=== PATIENT | female | born 1985 | race Caucasian/White ===

== ENCOUNTER 2017-05-26 10:19 | Emergency (ER) | payer OTHER ==
[2017-05-26] MEDS ORDERED: NALBUPHINE HCL 20 MG/ML AMPUL IM ONE (11:02)
[2017-05-26] MEDS ORDERED: NALBUPHINE HCL 20 MG/ML AMPUL ONE (11:04)
--- OUTSIDE RECORDS SUMMARY | 2017-05-26 11:04 | XMS REPORT | Summary of Care ---
:1985 Author Organization [facility] Care Team Providers Name Role Phone Maico Marian Primary Care Physician Encounter Date(s): 03/17/17 - 03/17/[address] Discharge Disposition: Discharged to Home or Self Care Attending Physician: Betzy De Luna MD Admitting Physician: Betzy De Luna MD Vital Signs No data available for this section Problem List Condition Effective Dates Status Health Status Informant Anxiety(Confirmed) Active (Confirmed) < 05/22/13 Resolved (Confirmed) 07/12/15 - 09/2015 Resolved BV (bacterial Resolved vaginosis)(Confirmed) Allergies, Adverse Reactions, Alerts Substance Reaction Severity Status cefaclor Active clindamycin Active vancomycin Active Medications CeleBREX 200 mg oral capsule 1 cap(s), Oral, Daily, # 30 cap(s), 5 Refill(s), Start Date: 08/15/16 11:20:00 CDT, Pharmacy: [facility] [id number] Start Date: 08/15/16 Stop Date: 03/17/17 Status: DiscontinuedCeleXA 10 mg oral tablet 1 tab(s), Oral, Daily, # 30 tab(s), 0 Refill(s), Start Date: 03/17/17 14:14:00 CDT Start Date: 03/17/17 Status: OrderedDaily Multiple for Women tab(s), Oral, Daily, 0 Refill(s), Start Date: 03/17/17 14:14:00 CDT Start Date: 03/17/17 Status: Orderedminocycline Oral, 0 Refill(s), Start Date: 12/31/15 10:23:00 CDT Start Date: 12/31/15 Stop Date: 03/17/17 Status: Discontinuedmultivitamin Daily, 0 Refill(s) Start Date: 03/25/14 Stop Date: 03/31/14 Status: DiscontinuedNexplanon 68 mg subcutaneous implant 1 EA, Subcutaneous, ONETIME, 0 Refill(s), Start Date: 12/08/14 9:21:00 [employer] Start Date: 12/08/14 Stop Date: 03/17/17 Status: DiscontinuedNexplanon 68 mg subcutaneous implant EA, Subcutaneous, ONETIME, 0 Refill(s) Start Date: 08/21/13 Stop Date: 03/31/14 Status: DiscontinuedOrtho-Cyclen 0.25 mg-35 mcg oral tablet 1 tab(s), Oral, Daily, # 28 tab(s), 12 Refill(s), Pharmacy: [facility] [id number] Start Date: 03/31/14 Stop Date: 12/29/14 Status: Discontinuedpseudoephedrine 120 mg oral tablet, extended release tab(s), Oral, q12hr interval, 0 Refill(s), Start Date: 08/12/16 16:20:00 CDT Start Date: 08/12/16 Stop Date: 03/17/17 Status: DiscontinuedtraMADol 50 mg oral tablet 1 tab(s), Oral, q4hr, PRN for pain, # 24 tab(s), 0 Refill(s) Start Date: 06/11/14 Stop Date: 12/29/14 Status: DiscontinuedVitamin B12 1000 mcg oral tablet 1 tab(s), Oral, Daily, 0 Refill(s), Start Date: 03/17/17 14:14:00 CDT Start Date: 03/17/17 Status: Ordered Results No data available for this section Immunizations No data available for this section Procedures Procedure Date Related Diagnosis Body Site Bunionectomy RIGHT 01/17/14 Bunionectomy LEFT 12/17/13 Extraction of wisdom tooth Miscellaneous operations1 13 Hammer toe operations Social History No data available for this section Assessment and Plan No data available for this section
--- OUTSIDE RECORDS SUMMARY | 2017-05-26 11:05 | XMS REPORT | Summary of Care ---
:1985 Author Organization [facility] Address [address] [place] [address] Care Team Providers Name Role Phone Marian Nina Primary Care Physician Encounter Date(s): 03/17/17 - 03/17/17 [facility], [address] [place] [address]- [facility] Discharge Diagnosis: Well adult exam Discharge Diagnosis: Nexplanon removal Discharge Disposition: 01 Discharged to Home or Self Care Attending Physician: Betzy De Luna MD Referring Physician: Betzy De Luna MD Vital Signs Most recent to oldest [Reference Range]: 1 Peripheral Pulse Rate [60-100 bpm] 81 bpm (03/17/17 2:10 PM) Blood Pressure [90-130/60-90 mmHg] 134/79mmHg *HI* (03/17/17 2:10 PM) Mean Arterial Pressure, Cuff 97 mmHg (03/17/17 2:10 PM) Most recent to oldest [Reference Range]: 1 Height/Length Measured 160.02 cm (03/17/17 2:10 PM) Weight Dosing 115.60 kg1 (03/17/17 2:16 PM) Weight Measured 115.6 kg (03/17/17 2:10 PM) BSA Measured 2.14 m2 (03/17/17 2:10 PM) Body Mass Index Measured 45.14 kg/m2 (03/17/17 2:10 PM) 1Result Comment: This result was because the dosing weight was either not entered or it is>30 days old. This result is based off: Weight Measured March 17, 2017 14:10:00 CDT by Johanna Daigle CMA Problem List Condition Effective Dates Status Health Status Informant Anxiety(Confirmed) Active (Confirmed) < 05/22/13 Resolved (Confirmed) 07/12/15 - 09/2015 Resolved BV (bacterial Resolved vaginosis)(Confirmed) Allergies, Adverse Reactions, Alerts Substance Reaction Severity Status cefaclor Active clindamycin Active vancomycin Active Medications CeleBREX 200 mg oral capsule 1 cap(s), Oral, Daily, # 30 cap(s), 5 Refill(s), Start Date: 08/15/16 11:20:00 CDT, Pharmacy: [facility] [id number] Start Date: 08/15/16 Stop Date: 03/17/17 Status: [...] ONETIME, 0 Refill(s), Start Date: 12/08/14 9:21:00 [employer] Start Date: 12/08/14 Stop Date: 03/17/17 Status: DiscontinuedNexplanon 68 mg subcutaneous implant EA, Subcutaneous, ONETIME, 0 Refill(s) Start Date: 08/21/13 Stop Date: 03/31/14 Status: DiscontinuedOrtho-Cyclen 0.25 mg-35 mcg oral tablet 1 tab(s), Oral, Daily, # 28 tab(s), 12 Refill(s), Pharmacy: [facility] [id number] Start Date: 03/31/14 Stop Date: 12/29/14 Status: [...]
[2017-05-26] MEDS ORDERED: ONDANSETRON HCL 8 MG TABLET PO ONE (12:21)
--- NOTE | 2017-05-26 12:38 | ERNOTE ---
Headache ER HPI - Narrative Date of Service: 05/26/17 - General Presenting Symptoms: headache, "migraine" Time Seen by Provider: 05/26/17 10:58 Source: patient Exam Limitations: no limitations - Immun/Allergies/Home Medications Immunizations: IMMUNIZATION HX Immunizations Up to Date Yes History of Influenza Vaccine No Hx Pneumococcal Vaccination No Allergies/Adverse Reactions: Allergies cefaclor [From Ceclor] Adverse Reaction (Mild, Verified 08/04/15 12:28) Hives clindamycin Adverse Reaction (Mild, Verified 08/04/15 12:28) HIVES, FEVER vancomycin Adverse Reaction (Mild, Verified 08/04/15 12:28) Hives Home Medications: HOME MEDICATIONS Etonogestrel [Nexplanon] 68 mg SQ PRN PRN 12/10/13 [Last Taken Unknown] Citalopram Hydrobromide [Celexa] 10 mg PO DAILY 05/26/17 [Last Taken Unknown] Ondansetron [Zofran Odt] 4 mg PO Q8H PRN #20 tab 05/26/17 [Last Taken Unknown] traMADol HCL [Ultram] 50 mg PO QID #20 tablet 05/26/17 [Last Taken Unknown] - History of Present Illness Narrative: patentn c/o of migraine for last several days Timing of Headache: gradual Context Headache: Present: new onset Quality: Present: achy, pressure, throbbing Severity Maximum: Present: moderate Severity-Currently: Present: moderate Headache frequency: Present: frequent headaches Modifying Factors - (Improves): Reports: other - nothing Modifying Factors - (Worsens): Reports: movement Associated Symptoms: Reports: nausea, vision changes, light-headedness Exacerbated by:: Reports: light, noise Prior Treament: Reports: other - ibuprofen Review of Systems - Review of Systems Constitutional: Present: See HPI, malaise EYE: Present: blurred vision ENT: Present: no symptoms reported Respiratory: Present: no symptoms reported Cardiology: Present: no symptoms reported Gastrointestinal/Abdominal: Present: no symptoms reported Genitourinary: Present: no symptoms reported Musculoskeletal: Present: no symptoms reported Skin: Present: no symptoms reported Neurological: Present: dizziness/light-headedness Endocrine: Present: no symptoms reported Hematologic/Lymphatic: Present: no symptoms reported Psych: Present: no symptoms reported All Other Systems: All systems neg except as marked - Patient's Past Medical History Patient History - Medical: Anxiety, Depression, Migraines, Other Patient History - Cardiac/Respiratory: Asthma Patient History - Cancer: No Hx of Cancer Patient History - Surgical Procedures: Other Patient History - Other: None LMP (females 10-50): unknown - Family History Family History:: no untoward family reactions to anesthesia, no familial bleeding tendencies - Social History Living Situations: home Abuse History: No History of abuse Psych History: Hx of Anxiety, Hx of Depression Smoking Status: Never smoker Have you smoked in the past 12 months: No Do you dip or chew tobacco: No Alcohol Use: none Drug Use: none - Immunizations Immunizations Up to Date: Yes Hx Pneumococcal Vaccination: No History of Influenza Vaccine: No Physical Exam - Physical Exam General Appearance: Present: alert, moderate distress Head Exam: Present: normal inspection, no evidence of injury Eye Exam: Normal inspection: bilateral, PERRL: bilateral, EOMI: bilateral Ears, Nose, Throat: Present: normal ENT inspection Neck: Present: normal inspection, nontender Respiratory: Present: no respiratory distress, normal breath sounds, no accessory muscle use, chest nontender, lungs clear Cardiovascular/Chest: Present: regular rate, rhythm, no murmur, normal peripheral pulses Peripheral Pulses: N=norm/S=strong/W=weak/B=bound/A=absent: Carotid (R): Normal , Carotid (L): Normal, Radial (R): Normal, Radial (L): Normal, Femoral (R): Normal, Femoral (L): Normal, Dorsalis-pedis (R): Normal, Dorsalis-pedis (L): Normal Gastrointestinal/Abdominal: Present: normal bowel sounds, nontender, nondistended, soft, no organomegaly Back Exam: Present: normal inspection, normal range of motion, no CVA tenderness , no vertebral tenderness Extremity Exam: Present: normal inspection, non-tender, normal range of motion, no edema Neurological Exam: Present: alert, oriented, normal mood/affect, no motor/ sensory deficits, rug receiving clerk II-XII nml as tested DTR: N=norm/NB=norm/brisk/A=abs/DD=dull/dimin/HC=hyperactive: Bicep (R): Normal , Bicep (L): Normal, Tricep (R): Normal, Tricep (L): Normal, Knee (R): Normal, Knee (L): Normal, Ankle (R): Normal, Ankle (L): Normal Skin Exam: Present: normal color, warm/dry Lymphatic Exam: Present: no adenopathy ED Progress - Vital Signs Patient's Vital Signs:: I have reviewed the patient's vital signs. Vital Signs: Vital Signs 05/26/17 05/26/17 10:44 10:49 Temperature 36.4 C L 36.4 C L Pulse Rate 91 91 Respiratory 17 17 Rate Blood Pressure 140/83 140/83 O2 Sat by Pulse 99 99 Oximetry - Progress/Reassessment Chief Complaint: Headache Progress:: Improved Progress Note-Subjective: 05/26/17 12:[address], to be discharged, f/u with f/p to have mri if symptoms persist Departure Clinical Impression: Migraine - Departure Disposition: Home self-care Condition: Fair Instructions: Recurrent Migraine Headache, [id number] Referrals: Marian Nina FNP [Primary Care Provider] - Prescriptions: Ondansetron [Zofran Odt] 4 mg PO Q8H PRN #20 tab PRN Reason: Migraine Headache traMADol HCL [Ultram] 50 mg PO QID #20 tablet
[2017-05-26] MEDS ORDERED: ONDANSETRON 4 MG TAB.RAPDIS PO ONE (13:12)
[2017-05-26 16:37] VITALS: BP 131/77
== END 2017-05-26 13:40 | disposition home or self-care (01) ==
LOC: ER 10:19
DX: G43.909 Migraine, unspecified, not intractable, without status migrainosus (principal); F32.9 Major depressive disorder, single episode, unspecified